=== PATIENT | male | born 1950 | race Caucasian/White ===

== ENCOUNTER 2022-04-26 10:57 | Outpatient (CLI) | payer MEDICARE | END 2022-04-26 10:58 | disposition home or self-care (01) | LOC: BICRAD 10:57 | PROVIDERS: ATTEND Internal Medicine Rheumatology | DX: M17.11 Unilateral primary osteoarthritis, right knee (principal); M76.891 Other specified enthesopathies of right lower limb, excluding foot; M25.461 Effusion, right knee; M25.761 Osteophyte, right knee ==

== ENCOUNTER 2025-03-19 13:25 | Outpatient (CLI) | payer MEDICARE | END 2025-03-19 13:26 | disposition home or self-care (01) | LOC: BICRAD 13:25 | PROVIDERS: ATTEND Internal Medicine Rheumatology | DX: M19.041 Primary osteoarthritis, right hand (principal) ==